=== PATIENT | male | born 1995 | race Hispanic/Latino ===

== ENCOUNTER 2018-01-18 12:53 | Emergency (ER) | payer SELFPAY ==
[~2018-01-18 12:53] MED LIST: ISOVUE-370 76%-LOCM 1 ML ONE; Iopamidol 370 76% 50 ML VIAL FS ONE
[2018-01-18 13:23] LABS: #Basophils 0.1 thou/uL (0.0-0.2); #Eosinphils 0.1 thou/uL (0.0-0.7); #Lymphocytes 2.2 thou/uL (1.20-3.40); #Monocytes 0.7 thou/uL (0.11-0.59); #Neutrophils 2.2 thou/uL (1.40-6.50); %Eosinophils 2.5 % (0.0-10.0); %Lymphocytes 41.4 % (21.0-51.0); %Monocytes 13.2 % (0.0-10.0); %Neutrophils 40.9 % (42.0-75.0); Hemoglobin 14.7 g/dL (14.0-18.0); Mean Corpuscular HGB CONC 33.8 g/dL (32.0-36.0); Mean Corpuscular Hemoglobin 31.3 pg (27.0-31.0); Mean Corpuscular Volume 92.6 fl (80.0-94.0); Mean Platelet Volume 6.4 fL (7.4-10.4); Platelet Count 258 thou/uL (130-400); RBC Distribution Width 12.2 % (11.5-14.5); Red Blood Cell (RBC) Count 4.69 mill/uL (4.70-6.10); White Blood Cell (WBC) Count 5.3 thou/uL (4.8-10.8)
[2018-01-18 13:44] LABS: ALT (SGPT) 18 U/L (8-55); AST (SGOT) 56 U/L (5-34); Albumin 4.7 g/dL (3.5-5.0); Alkaline Phosphatase 95 U/L (40-150); Anion Gap 14 mmol/L (10-20); BUN (Urea Nitrogen) 15 mg/dL (8.9-20.6); Bilirubin, Total 2.2 mg/dL (0.2-1.2); Calc. Creatinine Clearance 0 mL/min (70-130); Calcium 9.4 mg/dL (7.8-10.44); Carbon Dioxide 26 mmol/L (22-29); Chloride 102 mmol/L (98-107); Estimated GFR-MDRD Greater than 90; Globulin 3.3 g/dL (2.4-3.5); Glucose 86 mg/dL (70-105); Lipase 20 U/L (8-78); Sodium 138 mmol/L (136-145)
--- NOTE | 2018-01-18 15:54 | CT ---
CT ABDOMEN AND PELVIS WITH CONTRAST 01/18/18 HISTORY: Right upper quadrant and right lower quadrant pain. COMPARISON: None. FINDINGS: Lung bases are clear. No pericardial effusion. Appendix is felt to be visualized and is normal. No dilated loops of large or small bowel. Aortoiliac contour is normal. No hydronephrosis. The spleen, pancreas, adrenal glands as well as liver and gallbladder are all unre markable. Skeleton is unremarkable. IMPRESSION: No acute inflammatory process in the abdomen or pelvis. Normal appendix. POS: [facility]
[2018-01-18 16:05] LABS: Bilirubin Negative (Negative); Blood, Urine Negative (Negative); Clarity CLEAR (Clear); Glucose, Urine (Dipstick) Negative (Negative); Leukocyte Negative (Negative); Nitrite Negative (Negative); Protein, Urine (Dipstick) Negative (Neg-Trace)
[2018-01-18 16:13] LABS: Specific Gravity, Urine 1.048 (1.002-1.036)
[2018-01-21 22:12] LABS: Chlamydia by PCR Not Detected (NotDetected); GC by PCR Not Detected (NotDetected)
== END 2018-01-18 16:30 | disposition home or self-care (01) ==
LOC: ERS 12:53
DX: K59.00 Constipation, unspecified (principal); E86.0 Dehydration; F17.210 Nicotine dependence, cigarettes, uncomplicated; Z71.6 Tobacco abuse counseling
CPT/HCPCS: 74177; 80053; 81003; 83690; 85025; 87491; 87591; 99406

== ENCOUNTER 2018-10-01 18:44 | Emergency (ER) | payer SELFPAY ==
--- NOTE | 2018-10-01 20:29 | CT ---
FACIAL CT WITHOUT CONTRAST: 10/01/18 HISTORY: Left sided facial pain and swelling. Patient hit his left eyebrow and cheek bone with box two months ago. COMPARISON: None. FINDINGS: The visualized brain parenchyma is unremarkable. Bilateral ocular lenses are appropriately located. Both globes are intact. Retrobulbar fat is preserv ed. Symmetric attenuation of the optic nerves and ocular rectus muscles. The visualized calvarium is intact. There is mucosal thickening of the ethmoid air cells bilaterally. Adequate mastoid air cell aeration. Mild mucosal thickening of the sphenoid sinuses. Minimal mucosal disease of the left maxillary sinus. Pterygoid plates are intact. Maxilla and mandible are intact. The visualized upper cervical spine is also intact. There are dental caries involving the teeth along the left maxilla and mandible. Coronal reformatted images demonstrate patent bilateral osteomeatal complexes. Osseous margins of the orbits and sinuses are maintained. There are no fractures. No nasal bone fracture. IMPRESSION: No maxillofacial fractures. Additional findings as above. POS: PPP
== END 2018-10-01 20:52 | disposition home or self-care (01) ==
LOC: ERS 18:44
DX: J01.80 Other acute sinusitis (principal); F17.290 Nicotine dependence, other tobacco product, uncomplicated
CPT/HCPCS: 70486; 87804

== ENCOUNTER 2019-10-16 17:01 | Emergency (ER) | payer SELFPAY ==
[2019-10-16] MEDS ORDERED: Ibuprofen 200 MG TAB ONE (20:29)
[2019-10-16] MEDS ORDERED: Oxymetazoline HCl 0.05% (30 ML BOT) ONE (20:29)
[2019-10-16] MEDS ORDERED: Acetaminophen 500 MG TAB ONE (20:29)
--- NOTE | 2019-10-16 20:37 | RAD ---
CHEST TWO VIEWS: History: Cough, congestion. Comparison: None FINDINGS: The lungs are clear. No pneumothorax. No effusion. There appears to be a right sided transverse aorta . IMPRESSION: Right sided transverse aorta/aortic arch. No evidence for pneumonia. POS: HOME
== END 2019-10-16 20:54 | disposition home or self-care (01) ==
LOC: ERS 17:01
DX: B34.9 Viral infection, unspecified (principal); H92.03 Otalgia, bilateral; F17.210 Nicotine dependence, cigarettes, uncomplicated; Z71.6 Tobacco abuse counseling
CPT/HCPCS: 71046; 87804

== ENCOUNTER 2020-12-19 06:09 | Emergency (ER) | payer SELFPAY ==
[2020-12-19 07:36] LABS: ALT (SGPT) 17 U/L (8-55); AST (SGOT) 20 U/L (5-34); Acetaminophen Less than 6.0 mcg/mL (10.0-30.0); Albumin 4.4 g/dL (3.5-5.0); Alcohol 140 mg/dL (Less than 10); Alkaline Phosphatase 86 U/L (40-110); Anion Gap 13 mmol/L (10-20); BUN (Urea Nitrogen) 9 mg/dL (8.9-20.6); Bilirubin, Total 0.4 mg/dL (0.2-1.2); Calc. Creatinine Clearance 0 mL/min (70-130); Calcium 8.9 mg/dL (7.8-10.44); Carbon Dioxide 29 mmol/L (22-29); Chloride 106 mmol/L (98-107); Globulin 3.3 g/dL (2.4-3.5); Glucose 93 mg/dL (70-105); Potassium 4.5 mmol/L (3.5-5.1); Protein, Total 7.7 g/dL (6.0-8.3); Salicylate Less than 8.0 mg/dL (15.0-30.0); Sodium 143 mmol/L (136-145)
[2020-12-19 07:47] LABS: #Basophils 0.1 thou/uL (0.0-0.2); #Eosinphils 0.1 thou/uL (0.0-0.7); #Lymphocytes 2.4 thou/uL (1.20-3.40); #Monocytes 0.5 thou/uL (0.11-0.59); #Neutrophils 4.6 thou/uL (1.40-6.50); %Eosinophils 1.3 % (0.0-10.0); %Lymphocytes 31.3 % (21.0-51.0); %Monocytes 6.8 % (0.0-10.0); %Neutrophils 59.5 % (42.0-75.0); Hemoglobin 15.4 g/dL (14.0-18.0); Mean Corpuscular HGB CONC 33.5 g/dL (32.0-36.0); Mean Corpuscular Hemoglobin 31.8 pg (27.0-31.0); Mean Platelet Volume 6.6 fL (7.4-10.4); Platelet Count 306 thou/uL (130-400); RBC Distribution Width 11.6 % (11.5-14.5); Red Blood Cell (RBC) Count 4.85 mill/uL (4.70-6.10); White Blood Cell (WBC) Count 7.8 thou/uL (4.8-10.8)
[2020-12-19 08:28] LABS: Bilirubin Negative (Negative); Blood, Urine Negative (Negative); Clarity Clear (Clear); Glucose, Urine (Dipstick) Normal (Negative); Ketone, Urine Negative (Negative); Leukocyte Negative Leu/uL (Negative); Nitrite Negative (Negative); Protein, Urine (Dipstick) Negative (Neg-Trace); Urobilinogen Normal mg/dL (Less than 2); pH, Urine 6.5 (5.0-9.0)
[2020-12-19 08:39] LABS: Amphetamine Detected (NotDetected); Barbiturates Screen Not Detected (NotDetected); Benzodiazepine Screen Not Detected (NotDetected); Cocaine Metabolite Screen Not Detected (NotDetected); Medtox Control Line Valid? VALID (VALID); Medtox Reader # READER 4; Methadone Not Detected (NotDetected); Methamphetamine Not Detected (NotDetected); Opiate Screen Not Detected (NotDetected); Oxycodone Screen Not Detected (NotDetected); Phencyclidine (PCP) Not Detected (NotDetected); THC/Cannabinoid Screen Detected (NotDetected); Tricyclic Screen Not Detected (NotDetected)
== END 2020-12-19 13:08 | disposition home or self-care (01) ==
LOC: ERS 06:09
DX: S00.03XA Contusion of scalp, initial encounter (principal); F10.129 Alcohol abuse with intoxication, unspecified; F12.10 Cannabis abuse, uncomplicated; F15.10 Other stimulant abuse, uncomplicated; F17.210 Nicotine dependence, cigarettes, uncomplicated; X58.XXXA Exposure to other specified factors, initial encounter
CPT/HCPCS: 36415; 70450; 72100; 72125; 80053; 80306; 80307; 81003; 82550; 85025; 94760